=== PATIENT | female | born 1955 | race Caucasian/White ===

== ENCOUNTER → 2017-03-29 | Outpatient (CLI) | payer OTHER | END | disposition home or self-care (01) | LOC: C.PAPS 10:04 | PROVIDERS: ATTEND Obstetrics & Gynecology | DX: Z12.4 Encounter for screening for malignant neoplasm of cervix (principal); Z78.0 Asymptomatic menopausal state ==

== ENCOUNTER → 2017-04-25 | Outpatient (CLI) | payer OTHER | END | disposition home or self-care (01) | LOC: C.LAB1850 15:49 | PROVIDERS: ATTEND Obstetrics & Gynecology | DX: Z80.41 Family history of malignant neoplasm of ovary (principal) ==

== ENCOUNTER → 2017-05-31 | Outpatient (CLI) | payer OTHER ==
[~2017-05-31] MED LIST: OPTIRAY 320 IV PRN
--- NOTE | 2017-05-31 16:06 | DIAGNOSTIC IMAGING REPORT ---
CHEST CT WITH CONTRAST CT DOSE: 204.63 mGycm HISTORY: R91.8 Pulmonary nodules TECHNIQUE: Multiaxial CT images of the chest were performed following the intravenous administration of contrast. A dose lowering technique was utilized adhering to the principles of ALARA. COMPARISON: Chest 12/02/2014. FINDINGS: Stable 5 mm nodule within left lung apex on image 40 and 2 mm nodule within the left lower lobe on image 149. No new pulmonary nodules identified. The central airways are patent. No pleural or pericardial effusions. No suspicious lytic or blastic osseous lesions. There are few scattered subcentimeter hypodense lesions within the liver. These are similar to the prior study and likely represent cysts. The spleen and right adrenal gland are unremarkable. Stable nodular thickening within the left groundglass. No mediastinal or hilar lymphadenopathy. The heart is normal in size. The central pulmonary arteries are patent. No evidence for an aortic dissection. IMPRESSION: Stable subcentimeter pulmonary nodules within the left lung. These demonstrate greater than 2 year stability and are therefore considered to be benign. No new pulmonary nodules identified. Electronically signed by: Mike Rashid M.D. 05/31/2017 4:04 PM Dictated Date/Time: 05/31/2017 3:52 PM
== END | disposition home or self-care (01) ==
LOC: C.CTS 15:16
PROVIDERS: ATTEND Nurse Practitioner
DX: R91.8 Other nonspecific abnormal finding of lung field (principal)